=== PATIENT | female | born 2005 | race African-American/Black ===

== ENCOUNTER 2025-08-23 10:07 | Emergency (ER) | payer OTHER ==
[~2025-08-23] VITALS: Ht 162.6 cm; Wt 66.3 kg
[2025-08-23] MEDS: ACETAMINOPHEN 500 MG TAB PO ONE (12:22)
[2025-08-23] MEDS: NS (Normal Saline) 0.9% 1,000 ML IV ONE (13:35)
[2025-08-23 15:37] LABS: KETONE, URINE AUTO RFX 1+ mg/dL (NEGATIVE); LEUKOCYTE ESTERASE UR AUTO RFX NEGATIVE (NEGATIVE); MUCUS, URINE RFX SMALL (NEGATIVE); NITRITE, URINE AUTO RFX NEGATIVE (NEGATIVE); RBC, URINE AUTO RFX 0 /HPF (0-3); SQUAM EPITHELIAL CELL UR AURFX 6 /HPF (0-6); WBC, URINE AUTO RFX 1 /HPF (0-3)
[2025-08-23 16:39] VITALS: BP 103/59; TEMP 97.6; O2SAT 100
== END 2025-08-23 16:44 | disposition home or self-care (01) ==
LOC: M ED 10:07
DX: O98.512 Other viral diseases complicating pregnancy, second trimester (principal); J09.X2 Influenza due to identified novel influenza A virus with other respiratory manifestations; Z3A.16 16 weeks gestation of pregnancy